=== PATIENT | male | born 1980 | race Hispanic/Latino ===

== ENCOUNTER 2019-07-28 21:50 | Inpatient (IN) | payer SELFPAY ==
[2019-07-28 23:55] LABS: Alanine Aminotransferase 17 units/L (7-56); Albumin 4.4 g/dL (3.9-5); BUN/Creatinine Ratio 6; Blood Urea Nitrogen 6 mg/dL (9-20); Hemolysis Index 9
[2019-07-28 23:56] LABS: Bacteria,Urine 4+ /HPF (Negative); Bilirubin,Urine NEG (Negative); Blood,Urine NEG (Negative); Color,Urine Yellow (Yellow); Mucus,Urine 2+ /HPF; Protein,Urine <15 mg/dL mg/dL (Negative); Urobilinogen,Urine < 2.0 mg/dL (<2.0)
[2019-07-29] LABS: Hematocrit 39.8 % (35.5-45.6); Hemoglobin 13.9 gm/dl (11.8-15.2); Mean Corpuscular HGB Conc 35 % (32-34); Mean Corpuscular Volume 90 fl (84-94); Platelet Count 239 K/mm3 (140-440); Red Blood Count 4.43 M/mm3 (3.65-5.03); Red Cell Distribution Width 14.4 % (13.2-15.2)
[2019-07-29] MEDS ORDERED: SODIUM CHLORIDE 0.9% 1000 ML IV SOLN IV ONE (00:10)
--- NOTE | 2019-07-29 01:17 | XRay Report ---
CHEST 1 VIEW INDICATION / CLINICAL INFORMATION: cough. COMPARISON: None available. FINDINGS: SUPPORT DEVICES: None. HEART / MEDIASTINUM: No significant abnormality. LUNGS / PLEURA: No significant pulmonary or pleural abnormality. No pneumothorax. ADDITIONAL FINDINGS: No significant additional findings. IMPRESSION: 1. No acute findings. Signer Name: Alexus Holden MD Signed: 07/29/2019 1:12 AM Workstation Name: [id number]
[2019-07-29] MEDS ORDERED: VANCOMYCIN 1000 MG INJ IV ONE (01:47)
[2019-07-29] MEDS ORDERED: VANCOMYCIN 2,000 MG in SODIUM CHLORIDE 0.9% 500 ML 500 ML IV ONE (02:30)
--- NOTE | 2019-07-29 02:35 | Emergency Department Report ---
ED General Adult HPI - General Chief complaint: Abdominal Pain Stated complaint: SHAKING, JOINT PAIN, NAUSEA Time Seen by Provider: 07/29/19 00:07 Source: patient Mode of arrival: Ambulatory Limitations: No Limitations - History of Present Illness Initial comments: Mr. Anderson is a 38-year-old white male with a history of bilat cellulitis lower extremity with MRSA. States frequent admissions annually for same 1 month ago at [facility] [facility] this year already. Patient presents tonight for fevers chills malaise. Denies new open wounds not currently taking any medications , denies new fall injury or trauma. States she just does not feel well has been noted low-grade fever so he knows his legs are infected. Patient does not currently have a PCP. Patient is ambulatory to ED on his own power he is alert oriented x3 in no acute distress at this time. He describes describes leg aching as 3/10 tolerable with moderate swelling and erythema. Symptoms are relieved by nothing. Symptoms are exacerbated by prolonged walking standing and stair climbing. Patient denies calf pain or pain with dorsiflexion bilateral. Onset/Timin -: year(s) Location: lower extremity Radiation: non-radiation Severity scale (0 -10): 2 Quality: burning Consistency: intermittent Worsens with: none Associated Symptoms: fever/chills, malaise, nausea/vomiting Treatments Prior to Arrival: none - Related Data Allergies Allergy/AdvReac Type Severity Reaction Status Date / Time No Known Allergies Allergy Unverified 07/28/19 22:42 ED Review of Systems ROS: Stated complaint: SHAKING, JOINT PAIN, NAUSEA Other details as noted in HPI Constitutional: denies: chills, fever Eyes: denies: eye pain, eye discharge, vision change ENT: denies: ear pain, throat pain Respiratory: cough. denies: orthopnea, shortness of breath, wheezing Cardiovascular: denies: chest pain, palpitations Endocrine: no symptoms reported Gastrointestinal: melena. denies: abdominal pain, nausea, vomiting, diarrhea, constipation, hematemesis, hematochezia Genitourinary: denies: urgency, dysuria Musculoskeletal: back pain, arthralgia. denies: joint swelling Skin: denies: rash, lesions, change in hair/nails Neurological: denies: headache, weakness, paresthesias, vertigo Psychiatric: denies: anxiety, depression Hematological/Lymphatic: denies: easy bleeding, easy bruising ED Past Medical Hx - Past Medical History Previous Medical History?: Yes Additional medical history: MRSA in his legs - Surgical History Past Surgical History?: No - Social History Smoking Status: Never Smoker ED Physical Exam - General Limitations: No Limitations General appearance: alert, in no apparent distress - Head Head exam: Present: atraumatic, normocephalic - Eye Eye exam: Present: normal appearance, PERRL, EOMI, conjunctival injection Pupils: Present: normal accommodation - ENT ENT exam: Present: normal exam, TM's normal bilaterally - Neck Neck exam: Present: normal inspection, meningismus, full ROM, lymphadenopathy. Absent: tenderness, thyromegaly - Respiratory Respiratory exam: Present: normal lung sounds bilaterally, wheezes, rhonchi. Absent: respiratory distress, chest wall tenderness - Cardiovascular Cardiovascular Exam: Present: regular rate, normal rhythm. Absent: systolic murmur, diastolic murmur, rubs, gallop - GI/Abdominal GI/Abdominal exam: Present: soft, normal bowel sounds. Absent: distended, tenderness, guarding, rebound, rigid - Rectal Rectal exam: Present: deferred - Extremities Exam Extremities exam: Present: full ROM, tenderness, normal capillary refill, other (bilat le erythema and swelling, distal pulses intact ). Absent: calf tenderness - Back Exam Back exam: Present: normal inspection, full ROM. Absent: tenderness, CVA t enderness (R), CVA tenderness (L), muscle spasm - Neurological Exam Neurological exam: Present: alert, oriented X3, CN II-XII intact, normal gait, motor sensory deficit, reflexes normal - Psychiatric Psychiatric exam: Present: normal affect, normal mood - Skin Skin exam: Present: warm, dry, intact, normal color. Absent: rash ED Course Vital Signs 07/28/19 07/29/19 07/29/19 22:43 00:46 00:52 Temperature 100.0 F H Pulse Rate 104 H 94 H Respiratory 18 24 Rate Blood Pressure 168/90 Blood Pressure 129/74 [Right] O2 Sat by Pulse 99 100 98 Oximetry 07/29/19 07/29/19 01:00 01:30 Temperature Pulse Rate 92 H 95 H Respiratory 17 18 Rate Blood Pressure 129/70 133/69 Blood Pressure [Right] O2 Sat by Pulse 98 100 Oximetry ED Medical Decision Making - Lab Data Result diagrams: 07/28/19 23:25 07/28/19 23:25 Labs 07/28/19 07/28/19 07/28/19 23:25 23:25 23:25 WBC 28.5 H RBC 4.43 Hgb 13.9 Hct 39.8 MCV 90 MCH 31 MCHC 35 H RDW 14.4 Plt Count 239 Sodium 140 Potassium 3.9 Chloride 102.3 Carbon Dioxide 28 Anion Gap 14 BUN 6 L Creatinine 1.0 Estimated GFR > 60 BUN/Creatinine Ratio 6 Glucose 89 Calcium 9.0 Total Bilirubin 0.80 AST 18 ALT 17 Alkaline Phosphatase 70 Total Protein 7.0 Albumin 4.4 Albumin/Globulin Ratio 1.7 Lipase 20 Urine Color Urine Turbidity Urine pH Ur Specific [place] Urine Protein Urine Glucose (UA) Urine Ketones Urine Blood Urine Nitrite Urine Bilirubin Urine Urobilinogen Ur Leukocyte Esterase Urine WBC (Auto) Urine RBC (Auto) U Epithel Cells (Auto) Urine Bacteria (Auto) Urine Mucus 07/28/19 Unknown WBC RBC Hgb Hct MCV MCH MCHC RDW Plt Count Sodium Potassium Chloride Carbon Dioxide Anion Gap BUN Creatinine Estimated GFR BUN/Creatinine Ratio Glucose Calcium Total Bilirubin AST ALT Alkaline Phosphatase Total Protein Albumin Albumin/Globulin Ratio Lipase Urine Color Yellow Urine Turbidity Clear Urine pH 7.0 Ur Specific [place] 1.008 Urine Protein <15 mg/dl Urine Glucose (UA) Neg Urine Ketones Neg Urine Blood Neg Urine Nitrite Neg Urine Bilirubin Neg Urine Urobilinogen < 2.0 Ur Leukocyte Esterase Neg Urine WBC (Auto) 2.0 Urine RBC (Auto) 2.0 U Epithel Cells (Auto) 1.0 Urine Bacteria (Auto) 4+ Urine Mucus 2+ - Radiology Data Radiology results: report reviewed, image reviewed Findings Reporting MD: Alexus Holden Dictation Time: July 29, 2019 00:12 Hand Rounder: Not available [employer] Studies Director Date: CHEST 1 VIEW INDICATION / CLINICAL INFORMATION: cough. COMPARISON: None available. FINDINGS: SUPPORT DEVICES: None. HEART / MEDIASTINUM: No significant abnormality. LUNGS / PLEURA: No significant pulmonary or pleural abnormality. No pneumothorax. ADDITIONAL FINDINGS: No significant additional findings. IMPRESSION: 1. No acute findings. Signer Name: Alexus Holden MD Signed: 07/29/2019 12:12 AM Workstation Name: [id number] - Medical Decision Making Chest x-ray normal no infiltrate no opacities. labs noted above for wbc: 28.5, lactic acid: 2.4, ua: normal, this bilat le cellullitis, there is no open wound at presents, there is moderate erythema and cellultitis , no calf tenderness, no sob, no cp, no n/v , fever improved, hr improves with ivfs., consulted ed attending recommendation admit to hospitalist fay ko le cellulitis. 0320: Consulted hospitalist, recommedation admit for cellulitis, patient care handoff to same at this time. discussed tx plan with patient, patient verbalizes agreement and understanding of same. Critical care attestation.: If time is entered above; I have spent that time in minutes in the direct care of this critically ill patient, excluding procedure time. ED Disposition Clinical Impression: Bilateral cellulitis of lower leg Disposition: OP ADMIT IP TO THIS HOSP Is pt being admited?: Yes Does the pt Need Aspirin: No Condition: Stable Instructions: Cellulitis (ED) Time of Disposition: 03:26
[2019-07-29] MEDS ORDERED: SODIUM CHLORIDE 0.9% 1000 ML 1,000 ML ONE (02:54)
[2019-07-29 03:08] LABS: Band Neutrophils # (Manual) 1.7 K/mm3; Eosinophils % (Manual) 0 % (0.0-4.3); Total Cells Counted 100
[2019-07-29 03:09] LABS: Burr Cells Rare; Platelet Estimate Consistent w Auto
--- NOTE | 2019-07-29 04:17 | History and Physical Report ---
History of Present Illness History of present illness: 38-year-old man, obese, history of MRSA, comes emergency room complaining of his right leg. Patient stated he was in the hospital [place] time for cellulitis of his leg, he was treated with antibiotic which she cannot recall, his legs improved. 2 days ago started having redness in the right leg than left and pain and states that he feels like his cellulitis is coming back. He denies cough, diarrhea, sick contacts. He was given IV vancomycin, he will be admitted to the hospital for further care of cellulitis Review Of Systems: Constitutional: no weight loss, fever, chills Ears, eyes, nose, mouth and throat: no nasal congestion, no nasal discharge, no sinus pressure, blurry vision, diplopia Neck: No neck pain or rigidity. Cardiovascular: No palpitations, chest pain Respiratory: No shortness of breath, cough Gastrointestinal: No hematochezia Genitourinary : no dysuria, frequency Musculoskeletal: no muscle ache , joint pain Integumentary: no rash, no pruritis Neurological: no parathesias, focal weakness Endocrine: no cold or heat intolerance, no polyuria or polydipsia Hematologic/Lymphatic: no easy bruising, no easy bleeding, no gland swelling Allergic/Immunologic: no urticaria, no angioedema. PAST MEDICAL HISTORY: MRSA PAST SURGICAL HISTORY: None SOCIAL HISTORY: Denies alcohol, tobacco, drugs FAMILY HISTORY: Hypertension Medications and Allergies Allergies Allergy/AdvReac Type Severity Reaction Status Date / Time No Known Allergies Allergy Unverified 07/28/19 22:42 Active Meds: Active Medications Vancomycin HCl 2,000 mg/ (Sodium Chloride) 540 mls @ 250 mls/hr IV ONCE ONE Stop: 07/29/19 04:39 Last Admin: 07/29/19 03:21 Dose: 250 mls/hr Documented by: Exam - Physical Exam Narrative exam: Gen. appearance: Patient lying in bed, no apparent distress HEENT: Normocephalic, atraumatic, pupils equally round and reactive to light, extraocular movement intact, and no sclericterus,. No JVD or thyromegaly or nodule,neck supple, no carotid bruit ,mucous membranes moist, no exudate or erythema Heart: S1, S2, regular rate and rhythm Lungs: Crackles bilaterally, breathing comfortable Abdomen: Positive bowel sounds, nontender, nondistended, no organomegaly Extremity: Right leg with mild erythema, no edema, cyanosis, clubbing Skin: No rash, nodules, warm, dry Neuro: Cranial nerves II to XII intact, speech is fluent, moves extremities, sensory intact - Constitutional Vitals: Temp Pulse Resp BP Pulse Ox 100.0 F H 94 H 28 H 134/64 100 07/28/19 22:43 07/29/19 04:00 07/29/19 04:00 07/29/19 04:00 07/29/19 04:00 Results - Labs CBC & Chem 7: 07/28/19 23:25 07/28/19 23:25 Labs: Abnormal lab results 07/28/19 07/28/19 07/29/19 Range/Units 23:25 23:25 01:46 WBC 28.5 H (4.5-11.0) K/mm3 MCHC 35 H (32-34) % Seg Neuts % (Manual) 84.0 H (40.0-70.0) % Lymphocytes % (Manual) 3.0 L (13.4-35.0) % Seg Neutrophils # Man 23.9 H (1.8-7.7) K/mm3 Lymphocytes # (Manual) 0.9 L (1.2-5.4) K/mm3 Monocytes # (Manual) 1.7 H (0.0-0.8) K/mm3 Basophils # (Manual) 0.3 H (0.0-0.1) K/mm3 BUN 6 L (9-20) mg/dL Lactic Acid 2.40 H* (0.7-2.0) mmol/L - Imaging and Cardiology Chest x-ray: report reviewed Assessment and Plan Assessment Cellulitis of the leg Start vancomycin, IV fluid Consult infectious disease Leukocytosis out of proportion to the degree of cellulitis Start Percocet, contact precautions DVT prophylaxis
[2019-07-29] MEDS ORDERED: ONDANSETRON 4 MG/2 ML INJ IV PRN (05:52)
[2019-07-29] MEDS ORDERED: ACETAMINOPHEN 325 MG TAB PO PRN (05:52)
[2019-07-29] MEDS: SODIUM CHLORIDE 0.45% 1000 ML 1,000 ML IV SCH ×2 (08:09→22:02)
[2019-07-29] MEDS: ENOXAPARIN 40 MG/0.4 ML INJ SUB-Q SCH (14:25)
[2019-07-29] MEDS: VANCOMYCIN 2,000 MG in SODIUM CHLORIDE 0.9% 500 ML 500 ML IV SCH ×2 (14:25→21:52)
[2019-07-29] MEDS ORDERED: VANCOMYCIN/NS 1 GM/250 ML 1 GM/250 ML BAG IV SCH (14:30)
--- NOTE | 2019-07-29 14:47 | Consultation ---
History of Present Illness - Reason for Consult Consult date: 07/29/19 Cellulitis Requesting physician: LESLIE GUTIERREZ - History of Present Illness The patient is a 38-year-old male with obesity, history of MRSA and group A streptococcus bacteremia in March 2019 treated with 4 weeks of IV daptomycin that ended on 04/08/2019 at [facility] was admitted yesterday with complaints of pain and swelling of his right leg. He denies any obvious trauma. Denies any other symptoms. Noted to have right lower extremity swelling, leukocytosis. Infectious diseases was consulted for additional evaluation. Patient denies any smoking, alcohol or recreational drug use, also denies any IV drug use. Review of Systems: General: Low-grade fever HEENT: no new visual disturbance Respiratory: No cough, sputum, hemoptysis or shortness of breath Cardiovascular: No chest pain, syncope Gastrointestinal: No nausea, vomiting or diarrhea Genitourinary: No dysuria or hematuria Musculoskeletal: No new or worsening neck pain or back pain Neurologic: No headaches, seizures Hematologic: No easy bruising or bleeding Endocrine: No night sweats or acute weight loss Skin: negative for rash, jaundice Psychiatric: No suicidal or homicidal ideation Medications and Allergies Allergies Allergy/AdvReac Type Severity Reaction Status Date / Time No Known Allergies Allergy Unverified 07/28/19 22:42 Active Meds: Active Medications Acetaminophen (Tylenol) 650 mg PO Q4H PRN PRN Reason: Pain MILD(1-3)/Fever >100.5/MARTINEZ Enoxaparin Sodium (Enoxaparin) 40 mg SUB-Q QAM [facility] Last Admin: 07/29/19 14:25 Dose: 40 mg Documented by: Sodium Chloride (Nacl 0.45% 1000 Ml) 1,000 mls @ 75 mls/hr IV DIRECT [facility] Last Admin: 07/29/19 08:09 Dose: 75 mls/hr Documented by: Vancomycin HCl 2,000 mg/ (Sodium Chloride) 540 mls @ 250 mls/hr IV Q8H [facility] Last Admin: 07/29/19 14:25 Dose: 250 mls/hr Documented by: Ondansetron HCl (Zofran) 4 mg IV Q8H PRN PRN Reason: Nausea And Vomiting Oxycodone/Acetaminophen (Percocet 5/325) 1 tab PO Q6H PRN PRN Reason: Pain, Moderate (4-6) Sodium Chloride (Sodium Chloride Flush Syringe 10 Ml) 10 ml IV BID [facility] Last Admin: 07/29/19 14:25 Dose: 10 ml Documented by: Sodium Chloride (Sodium Chloride Flush Syringe 10 Ml) 10 ml IV PRN PRN PRN Reason: LINE FLUSH Physical Examination - Physical Exam Narrative exam: Physical Exam: Constitutional: Alert, cooperative. No acute distress Head, Ears, Nose: Normocephalic, atraumatic. External ears, nose normal Eyes: Conjunctivae/corneas clear. No icterus. No ptosis. Neck: Supple, no meningeal signs Cardiovascular: S1, S2 normal. Respiratory: Good air entry, clear to auscultation bilaterally GI: Soft, non-tender; bowel sounds normal. No peritoneal signs Musculoskeletal: Right lower extremity swelling, redness and tenderness. No open area or purulence or wound Skin: No rash or abscess Hem/Lymphatic: No palpable cervical or supraclavicular nodes. No lymphangitis Psych: Mood ok. Affect normal Neurological: Awake, alert, oriented. No gross abnormality - Constitutional Vitals: Vital Signs Temp Pulse Resp BP Pulse Ox 99.7 F H 89 22 124/70 95 07/29/19 14:20 07/29/19 14:20 07/29/19 14:20 07/29/19 14:20 07/29/19 14:20 Temperature -Last 24 Hours Temperature 99.7 F Temperature 100.3 F Temperature 100.0 F Results - Labs CBC & Chem 7: 07/28/19 23:25 07/28/19 23:25 Labs: Abnormal lab results 07/28/19 07/28/19 07/29/19 Range/Units 23:25 23:25 01:46 WBC 28.5 H (4.5-11.0) K/mm3 MCHC 35 H (32-34) % Seg Neuts % (Manual) 84.0 H (40.0-70.0) % Lymphocytes % (Manual) 3.0 L (13.4-35.0) % Seg Neutrophils # Man 23.9 H (1.8-7.7) K/mm3 Lymphocytes # (Manual) 0.9 L (1.2-5.4) K/mm3 Monocytes # (Manual) 1.7 H (0.0-0.8) K/mm3 Basophils # (Manual) 0.3 H (0.0-0.1) K/mm3 BUN 6 L (9-20) mg/dL Lactic Acid 2.40 H* (0.7-2.0) mmol/L - Imaging and Cardiology Chest x-ray: report reviewed, image reviewed (no pneumonia) Assessment and Plan Cultures: 07/29/2019 blood culture: In progress A/P: 38-year-old male with obesity, history of MRSA and group A streptococcus bacteremia in March 2019 treated with 4 weeks of IV daptomycin that ended on 04/08/2019 at [facility]: #Sepsis, right lower extremity cellulitis #Obesity #History of MRSA and group A streptococcus bacteremia in March 2019 treated with 4 weeks of IV daptomycin that ended on 04/08/2019 at [facility]. Treated by Heidi MUKHERJEE. Recs: Continue IV vancomycin, target trough between 10 to 20 mcg/mL IV clindamycin added for synergy Limb elevation Rule out DVT, ultrasound ordered Estela Rutherford MD, FACP [facility] C: [phone] O: [phone] F: [phone]
--- NOTE | 2019-07-29 15:21 | Progress Note ---
Assessment and Plan Assessment and plan: Patient is a 38 yo man with a history of bilateral leg cellulitis with MRSA who presents with bilateral leg pains. Sepsis right leg cellulitis: treat with IV Vancomycin with close monitoring Obesity, bmi 48.2: behavioral school counselors on weight reduction History of MRSA and group A streptococcus bacteremia in March 2019 treated with 4 weeks of IV daptomycin that ended on 04/08/2019 at [facility]. Treated by [place] ID: contact isolation History Interval history: Patient was seen and examined. Follow-up on current diagnosis RLE cellulitis. Overnight uneventful as no events directly reported to me. Patient denies any chest pain, shortness breath, nausea/vomiting or severe headaches. Imaging, nursing note, chart, labs and old chart reviewed. Discussed with patient. Hospitalist Physical - Physical exam Narrative exam: Gen: WDWN, NAD, Awake, Alert, Orientated HEENT: NCAT, EOMI, PERRL, OP Clear Neck: supple, no adenopathy, no thyromegaly, no JVD CVS/Heart: RRR, normal S1S2, pulses present bilaterally Chest/Lungs: CTA B, Symmetrical chest expansion, good air entry bilaterally GI/Abdomen: soft, NTND, good bowel sounds, no guarding or rebound /Bladder: no suprapubic tenderness, no CVA or paraspinal tenderness Extermity/Skin: bilateral lower leg with venous stasis changes, with right lower leg circumferential redness from ankle to mid calf with erythema, tenderness MSK: FROM x 4 Neuro: CN 2-12 grossly intact, no new focal deficits Psych: calm - Constitutional Vitals: Temp Pulse Resp BP Pulse Ox 99.7 F H 89 22 124/70 95 07/29/19 14:20 07/29/19 14:20 07/29/19 14:20 07/29/19 14:20 07/29/19 14:20 Results - Labs CBC & Chem 7: 07/28/19 23:25 07/28/19 23:25 Labs: Laboratory Last Values WBC 28.5 K/mm3 (4.5-11.0) H 07/28/19 23:25 RBC 4.43 M/mm3 (3.65-5.03) 07/28/19 23:25 Hgb 13.9 gm/dl (11.8-15.2) 07/28/19 23:25 Hct 39.8 % (35.5-45.6) 07/28/19 23:25 MCV 90 fl (84-94) 07/28/19 23:25 MCH 31 pg (28-32) 07/28/19 23:25 MCHC 35 % (32-34) H 07/28/19 23:25 RDW 14.4 % (13.2-15.2) 07/28/19 23:25 Plt Count 239 K/mm3 (140-440) 07/28/19 23:25 Add Manual Diff Complete 07/28/19 23:25 Total Counted 100 07/28/19 23:25 Seg Neuts % (Manual) 84.0 % (40.0-70.0) H 07/28/19 23:25 Band Neutrophils % 6.0 % 07/28/19 23:25 Lymphocytes % (Manual) 3.0 % (13.4-35.0) L 07/28/19 23:25 Reactive Lymphs % (Man) 0 % 07/28/19 23:25 Monocytes % (Manual) 6.0 % (0.0-7.3) 07/28/19 23:25 Eosinophils % (Manual) 0 % (0.0-4.3) 07/28/19 23:25 Basophils % (Manual) 1.0 % (0.0-1.8) 07/28/19 23:25 Metamyelocytes % 0 % 07/28/19 23:25 Myelocytes % 0 % 07/28/19 23:25 Promyelocytes % 0 % 07/28/19 23:25 Blast Cells % 0 % 07/28/19 23:25 Nucleated RBC % Not Reportable 07/28/19 23:25 Seg Neutrophils # Man 23.9 K/mm3 (1.8-7.7) H 07/28/19 23:25 Band Neutrophils # 1.7 K/mm3 07/28/19 23:25 Lymphocytes # (Manual) 0.9 K/mm3 (1.2-5.4) L 07/28/19 23:25 Abs React Lymphs (Man) 0.0 K/mm3 07/28/19 23:25 Monocytes # (Manual) 1.7 K/mm3 (0.0-0.8) H 07/28/19 23:25 Eosinophils # (Manual) 0.0 K/mm3 (0.0-0.4) 07/28/19 23:25 Basophils # (Manual) 0.3 K/mm3 (0.0-0.1) H 07/28/19 23:25 Metamyelocytes # 0.0 K/mm3 07/28/19 23:25 Myelocytes # 0.0 K/mm3 07/28/19 23:25 Promyelocytes # 0.0 K/mm3 07/28/19 23:25 Blast Cells # 0.0 K/mm3 07/28/19 23:25 WBC Morphology Not Reportable 07/28/19 23:25 Hypersegmented Neuts Not Reportable 07/28/19 23:25 Hyposegmented Neuts Not Reportable 07/28/19 23:25 Hypogranular Neuts Not Reportable 07/28/19 23:25 Smudge Cells Not Reportable 07/28/19 23:25 Toxic Granulation Not Reportable 07/28/19 23:25 Toxic Vacuolation Not Reportable 07/28/19 23:25 Dohle Bodies Not Reportable 07/28/19 23:25 Pelger-Huet Anomaly Not Reportable 07/28/19 23:25 Marjan Rods Not Reportable 07/28/19 23:25 Platelet Estimate Consistent w auto 07/28/19 23:25 Clumped Platelets Not Reportable 07/28/19 23:25 Plt Clumps, EDTA Not Reportable 07/28/19 23:25 Large Platelets Not Reportable 07/28/19 23:25 Giant Platelets Not Reportable 07/28/19 23:25 Platelet Satelliting Not Reportable 07/28/19 23:25 Plt Morphology Comment Not Reportable 07/28/19 23:25 RBC Morphology Not Reportable 07/28/19 23:25 Dimorphic RBCs Not Reportable 07/28/19 23:25 Polychromasia Not Reportable 07/28/19 23:25 Hypochromasia Not Reportable 07/28/19 23:25 Poikilocytosis Not Reportable 07/28/19 23:25 Anisocytosis Not Reportable 07/28/19 23:25 Microcytosis Not Reportable 07/28/19 23:25 Macrocytosis Not Reportable 07/28/19 23:25 Spherocytes Not Reportable 07/28/19 23:25 Pappenheimer Bodies Not Reportable 07/28/19 23:25 Sickle Cells Not Reportable 07/28/19 23:25 Target Cells Not Reportable 07/28/19 23:25 Tear Drop Cells Not Reportable 07/28/19 23:25 Ovalocytes Not Reportable 07/28/19 23:25 Helmet Cells Not Reportable 07/28/19 23:25 [place] Bodies Not Reportable 07/28/19 23:25 [place] Rings Not Reportable 07/28/19 23:25 Li Cells Rare 07/28/19 23:25 Bite Cells Not Reportable 07/28/19 23:25 Crenated Cell Not Reportable 07/28/19 23:25 Elliptocytes Rare 07/28/19 23:25 Acanthocytes (Spur) Not Reportable 07/28/19 23:25 Rouleaux Not Reportable 07/28/19 23:25 Hemoglobin C Crystals Not Reportable 07/28/19 23:25 Schistocytes Not Reportable 07/28/19 23:25 Malaria parasites Not Reportable 07/28/19 23:25 Vince Bodies Not Reportable 07/28/19 23:25 Hem Pathologist Commnt No 07/28/19 23:25 Sodium 140 mmol/L (137-145) 07/28/19 23:25 Potassium 3.9 mmol/L (3.6-5.0) 07/28/19 23:25 Chloride 102.3 mmol/L (98-107) 07/28/19 23:25 Carbon Dioxide 28 mmol/L (22-30) 07/28/19 23:25 Anion Gap 14 mmol/L 07/28/19 23:25 BUN 6 mg/dL (9-20) L 07/28/19 23:25 Creatinine 1.0 mg/dL (0.8-1.5) 07/28/19 23:25 Estimated GFR > 60 ml/min 07/28/19 23:25 BUN/Creatinine Ratio 6 % 07/28/19 23:25 Glucose 89 mg/dL (75-100) 07/28/19 23:25 Lactic Acid 1.90 mmol/L (0.7-2.0) 07/29/19 05:51 Calcium 9.0 mg/dL (8.4-10.2) 07/28/19 23:25 Total Bilirubin 0.80 mg/dL (0.1-1.2) 07/28/19 23:25 AST 18 units/L (5-40) 07/28/19 23:25 ALT 17 units/L (7-56) 07/28/19 23:25 Alkaline Phosphatase 70 units/L (35-129) 07/28/19 23:25 Total Protein 7.0 g/dL (6.3-8.2) 07/28/19 23:25 Albumin 4.4 g/dL (3.9-5) 07/28/19 23:25 Albumin/Globulin Ratio 1.7 % 07/28/19 23:25 Lipase 20 units/L (13-60) 07/28/19 23:25 Urine Color Yellow (Yellow) 07/28/19 Unknown Urine Turbidity Clear (Clear) 07/28/19 Unknown Urine pH 7.0 (5.0-7.0) 07/28/19 Unknown Ur Specific [place] 1.008 (1.003-1.030) 07/28/19 Unknown Urine Protein <15 mg/dl mg/dL (Negative) 07/28/19 Unknown Urine Glucose (UA) Neg mg/dL (Negative) 07/28/19 Unknown Urine Ketones Neg mg/dL (Negative) 07/28/19 Unknown Urine Blood Neg (Negative) 07/28/19 Unknown Urine Nitrite Neg (Negative) 07/28/19 Unknown Urine Bilirubin Neg (Negative) 07/28/19 Unknown Urine Urobilinogen < 2.0 mg/dL (<2.0) 07/28/19 Unknown Ur Leukocyte Esterase Neg (Negative) 07/28/19 Unknown Urine WBC (Auto) 2.0 /HPF (0.0-6.0) 07/28/19 Unknown Urine RBC (Auto) 2.0 /HPF (0.0-6.0) 07/28/19 Unknown U Epithel Cells (Auto) 1.0 /HPF (0-13.0) 07/28/19 Unknown Urine Bacteria (Auto) 4+ /HPF (Negative) 07/28/19 Unknown Urine Mucus 2+ /HPF 07/28/19 Unknown Microbiology: Microbiology 07/29/19 01:46 Peripheral/Venous Blood Culture - Preliminary Culture in Progress 07/29/19 01:46 Peripheral/Venous Blood Culture - Preliminary Culture in Progress Panda/IV: IV Catheter Type [Right Peripheral IV Antecubital] IV Catheter Type [Left INT / Saline Lock Antecubital] Active Medications - Current Medications Current Medications: Generic Name Dose Route Start Last Admin Trade Name Freq PRN Reason Stop Dose Admin Acetaminophen 650 mg 07/29/19 05:52 Tylenol PO Q4H PRN Pain MILD(1-3)/Fever >100.5/MARTINEZ Enoxaparin Sodium 40 mg 07/29/19 10:00 07/29/19 14:25 Enoxaparin SUB-Q 40 mg QAM ZAK Administration Sodium Chloride 1,000 mls @ 75 mls/hr 07/29/19 06:00 07/29/19 08:09 Nacl 0.45% 1000 Ml IV 75 mls/hr DIRECT ZAK Administration Vancomycin HCl 2,000 mg/ 540 mls @ 250 mls/hr 07/29/19 12:00 07/29/19 14:25 Sodium Chloride IV 250 mls/hr Q8H ZAK Administration Clindamycin HCl 900 mg in 50 mls @ 100 mls/hr 07/29/19 15:00 Cleocin 900 Mg/50 Ml IV Q8HR ZAK Protocol Ondansetron HCl 4 mg 07/29/19 05:52 Zofran IV Q8H PRN Nausea And Vomiting Oxycodone/Acetaminophen 1 tab 07/29/19 05:52 Percocet 5/325 PO Q6H PRN Pain, Moderate (4-6) Sodium Chloride 10 ml 07/29/19 10:00 07/29/19 14:25 Sodium Chloride Flush Syringe 10 Ml IV 10 ml BID ZAK Administration Sodium Chloride 10 ml 07/29/19 05:52 Sodium Chloride Flush Syringe 10 Ml IV PRN PRN LINE FLUSH
[2019-07-29] MEDS: oxyCODONE /ACETAMINOPHEN 5-325MG TAB PO PRN (21:53)
[2019-07-30] MEDS: VANCOMYCIN 2,000 MG in SODIUM CHLORIDE 0.9% 500 ML 500 ML IV SCH ×3 (04:38→19:57)
[2019-07-30 04:42] LABS: Basophils # (Auto) 0.1 K/mm3 (0.0-0.1); Basophils % (Auto) 0.8 % (0.0-1.8); Eosinophils # (Auto) 0.1 K/mm3 (0.0-0.4); Eosinophils % (Auto) 1.7 % (0.0-4.3); Hematocrit 37.9 % (35.5-45.6); Hemoglobin 12.8 gm/dl (11.8-15.2); Lymphocytes # (Auto) 1.8 K/mm3 (1.2-5.4); Lymphocytes % (Auto) 22.1 % (13.4-35.0); Mean Corpuscular HGB Conc 34 % (32-34); Mean Corpuscular Volume 89 fl (84-94); Monocytes % (Auto) 12.5 % (0.0-7.3); Platelet Count 206 K/mm3 (140-440); Red Blood Count 4.23 M/mm3 (3.65-5.03); Red Cell Distribution Width 14.7 % (13.2-15.2)
[2019-07-30 04:59] LABS: BUN/Creatinine Ratio 13; Blood Urea Nitrogen 10 mg/dL (9-20); Calcium 8.1 mg/dL (8.4-10.2); Hemolysis Index 6
[2019-07-30] MEDS ORDERED: POTASSIUM CHLORIDE ER 20 MEQ TAB PO ONE (09:00)
[2019-07-30] MEDS: ENOXAPARIN 40 MG/0.4 ML INJ SUB-Q SCH (09:45)
--- NOTE | 2019-07-30 10:46 | Vascular Lab Report ---
DUPLEX DOPPLER LOWER EXTREMITY VEINS, BILATERAL INDICATION / CLINICAL INFORMATION: b/l lower extremity swelling, pain. TECHNIQUE: Duplex doppler imaging was performed through the veins of both lower extremities using venous berlin reggie and other maneuvers. COMPARISON: None available. FINDINGS: Right Common Femoral vein: Negative. Right Femoral vein: Negative. Right Popliteal vein: Negative. Right Calf veins: Negative. Left Common Femoral vein: Negative. Left Femoral vein: Negative. Left Popliteal vein: Negative. Left Calf veins: Negative. Additional findings: None. IMPRESSION: 1. No sonographic evidence for DVT in either lower extremity. Signer Name: Tonio Junior MD Signed: 07/29/2019 7:07 PM Workstation Name: [id number]
--- NOTE | 2019-07-30 11:49 | Progress Note ---
Assessment and Plan Assessment and plan: Patient is a 38 yo man with a history of bilateral leg cellulitis with MRSA who presents with bilateral leg pains. Sepsis right leg cellulitis: treat with IV Vancomycin with close monitoring Obesity, bmi 48.2: insurance counselor on weight reduction History of MRSA and group A streptococcus bacteremia in March 2019 treated with 4 weeks of IV daptomycin that ended on 04/08/2019 at [facility]. Treated by [place] ID: contact isolation 07/30/19: on IV vancomycin, WBC improved from 28.5 to 7.9, continue to follow cultures. History Interval history: Patient was seen and examined. Follow-up on current diagnosis RLE cellulitis. Overnight uneventful as no events directly reported to me. Patient denies any chest pain, shortness breath, nausea/vomiting or severe headaches. Imaging, nursing note, chart, labs and old chart reviewed. Discussed with patient. Hospitalist Physical - Physical exam Narrative exam: Gen: WDWN, NAD, Awake, Alert, Orientated HEENT: NCAT, EOMI, PERRL, OP Clear Neck: supple, no adenopathy, no thyromegaly, no JVD CVS/Heart: RRR, normal S1S2, pulses present bilaterally Chest/Lungs: CTA B, Symmetrical chest expansion, good air entry bilaterally GI/Abdomen: soft, NTND, good bowel sounds, no guarding or rebound /Bladder: no suprapubic tenderness, no CVA or paraspinal tenderness Extermity/Skin: bilateral lower leg with venous stasis changes, much better, right lower leg circumferential redness from ankle to mid calf with erythema, tenderness MSK: FROM x 4 Neuro: CN 2-12 grossly intact, no new focal deficits Psych: calm - Constitutional Vitals: Temp Pulse Resp BP Pulse Ox 97.5 F L 78 18 137/76 97 07/30/19 08:14 07/30/19 08:14 07/30/19 08:27 07/30/19 08:14 07/30/19 08:27 Results - Labs CBC & Chem 7: 07/30/19 03:42 07/30/19 03:42 Labs: Laboratory Last Values WBC 7.9 K/mm3 (4.5-11.0) 07/30/19 03:42 RBC 4.23 M/mm3 (3.65-5.03) 07/30/19 03:42 Hgb 12.8 gm/dl (11.8-15.2) 07/30/19 03:42 Hct 37.9 % (35.5-45.6) 07/30/19 03:42 MCV 89 fl (84-94) 07/30/19 03:42 MCH 30 pg (28-32) 07/30/19 03:42 MCHC 34 % (32-34) 07/30/19 03:42 RDW 14.7 % (13.2-15.2) 07/30/19 03:42 Plt Count 206 K/mm3 (140-440) 07/30/19 03:42 Lymph % (Auto) 22.1 % (13.4-35.0) 07/30/19 03:42 Saline % (Auto) 12.5 % (0.0-7.3) H 07/30/19 03:42 Eos % (Auto) 1.7 % (0.0-4.3) 07/30/19 03:42 Baso % (Auto) 0.8 % (0.0-1.8) 07/30/19 03:42 Lymph # 1.8 K/mm3 (1.2-5.4) 07/30/19 03:42 Saline # 1.0 K/mm3 (0.0-0.8) H 07/30/19 03:42 Eos # 0.1 K/mm3 (0.0-0.4) 07/30/19 03:42 Baso # 0.1 K/mm3 (0.0-0.1) 07/30/19 03:42 Add Manual Diff Complete 07/28/19 23:25 Total Counted 100 07/28/19 23:25 Seg Neutrophils % 62.9 % (40.0-70.0) 07/30/19 03:42 Seg Neuts % (Manual) 84.0 % (40.0-70.0) H 07/28/19 23:25 Band Neutrophils % 6.0 % 07/28/19 23:25 Lymphocytes % (Manual) 3.0 % (13.4-35.0) L 07/28/19 23:25 Reactive Lymphs % (Man) 0 % 07/28/19 23:25 Monocytes % (Manual) 6.0 % (0.0-7.3) 07/28/19 23:25 Eosinophils % (Manual) 0 % (0.0-4.3) 07/28/19 23:25 Basophils % (Manual) 1.0 % (0.0-1.8) 07/28/19 23:25 Metamyelocytes % 0 % 07/28/19 23:25 Myelocytes % 0 % 07/28/19 23:25 Promyelocytes % 0 % 07/28/19 23:25 Blast Cells % 0 % 07/28/19 23:25 Nucleated RBC % Not Reportable 07/28/19 23:25 Seg Neutrophils # 5.0 K/mm3 (1.8-7.7) 07/30/19 03:42 Seg Neutrophils # Man 23.9 K/mm3 (1.8-7.7) H 07/28/19 23:25 Band Neutrophils # 1.7 K/mm3 07/28/19 23:25 Lymphocytes # (Manual) 0.9 K/mm3 (1.2-5.4) L 07/28/19 23:25 Abs React Lymphs (Man) 0.0 K/mm3 07/28/19 23:25 Monocytes # (Manual) 1.7 K/mm3 (0.0-0.8) H 07/28/19 23:25 Eosinophils # (Manual) 0.0 K/mm3 (0.0-0.4) 07/28/19 23:25 Basophils # (Manual) 0.3 K/mm3 (0.0-0.1) H 07/28/19 23:25 Metamyelocytes # 0.0 K/mm3 07/28/19 23:25 Myelocytes # 0.0 K/mm3 07/28/19 23:25 Promyelocytes # 0.0 K/mm3 07/28/19 23:25 Blast Cells # 0.0 K/mm3 07/28/19 23:25 WBC Morphology Not Reportable 07/28/19 23:25 Hypersegmented Neuts Not Reportable 07/28/19 23:25 Hyposegmented Neuts Not Reportable 07/28/19 23:25 Hypogranular Neuts Not Reportable 07/28/19 23:25 Smudge Cells Not Reportable 07/28/19 23:25 Toxic Granulation Not Reportable 07/28/19 23:25 Toxic Vacuolation Not Reportable 07/28/19 23:25 Dohle Bodies Not Reportable 07/28/19 23:25 Pelger-Huet Anomaly Not Reportable 07/28/19 23:25 Marjan Rods Not Reportable 07/28/19 23:25 Platelet Estimate Consistent w auto 07/28/19 23:25 Clumped Platelets Not Reportable 07/28/19 23:25 Plt Clumps, EDTA Not Reportable 07/28/19 23:25 Large Platelets Not Reportable 07/28/19 23:25 Giant Platelets Not Reportable 07/28/19 23:25 Platelet Satelliting Not Reportable 07/28/19 23:25 Plt Morphology Comment Not Reportable 07/28/19 23:25 RBC Morphology Not Reportable 07/28/19 23:25 Dimorphic RBCs Not Reportable 07/28/19 23:25 Polychromasia Not Reportable 07/28/19 23:25 Hypochromasia Not Reportable 07/28/19 23:25 Poikilocytosis Not Reportable 07/28/19 23:25 Anisocytosis Not Reportable 07/28/19 23:25 Microcytosis Not Reportable 07/28/19 23:25 Macrocytosis Not Reportable 07/28/19 23:25 Spherocytes Not Reportable 07/28/19 23:25 Pappenheimer Bodies Not Reportable 07/28/19 23:25 Sickle Cells Not Reportable 07/28/19 23:25 Target Cells Not Reportable 07/28/19 23:25 Tear Drop Cells Not Reportable 07/28/19 23:25 Ovalocytes Not Reportable 07/28/19 23:25 Helmet Cells Not Reportable 07/28/19 23:25 [place] Bodies Not Reportable 07/28/19 23:25 [place] Rings Not Reportable 07/28/19 23:25 [place] Cells Rare 07/28/19 23:25 Bite Cells Not Reportable 07/28/19 23:25 Crenated Cell Not Reportable 07/28/19 23:25 Elliptocytes Rare 07/28/19 23:25 Acanthocytes (Spur) Not Reportable 07/28/19 23:25 Rouleaux Not Reportable 07/28/19 23:25 Hemoglobin C Crystals Not Reportable 07/28/19 23:25 Schistocytes Not Reportable 07/28/19 23:25 Malaria parasites Not Reportable 07/28/19 23:25 Vince Bodies Not Reportable 07/28/19 23:25 Hem Pathologist Commnt No 07/28/19 23:25 Sodium 142 mmol/L (137-145) 07/30/19 03:42 Potassium 3.3 mmol/L (3.6-5.0) L 07/30/19 03:42 Chloride 107.2 mmol/L (98-107) H 07/30/19 03:42 Carbon Dioxide 25 mmol/L (22-30) 07/30/19 03:42 Anion Gap 13 mmol/L 07/30/19 03:42 BUN 10 mg/dL (9-20) 07/30/19 03:42 Creatinine 0.8 mg/dL (0.8-1.5) 07/30/19 03:42 Estimated GFR > 60 ml/min 07/30/19 03:42 BUN/Creatinine Ratio 13 % 07/30/19 03:42 Glucose 97 mg/dL (75-100) 07/30/19 03:42 Lactic Acid 1.90 mmol/L (0.7-2.0) 07/29/19 05:51 Calcium 8.1 mg/dL (8.4-10.2) L 07/30/19 03:42 Total Bilirubin 0.80 mg/dL (0.1-1.2) 07/28/19 23:25 AST 18 units/L (5-40) 07/28/19 23:25 ALT 17 units/L (7-56) 07/28/19 23:25 Alkaline Phosphatase 70 units/L (35-129) 07/28/19 23:25 Total Protein 7.0 g/dL (6.3-8.2) 07/28/19 23:25 Albumin 4.4 g/dL (3.9-5) 07/28/19 23:25 Albumin/Globulin Ratio 1.7 % 07/28/19 23:25 Lipase 20 units/L (13-60) 07/28/19 23:25 Urine Color Yellow (Yellow) 07/28/19 Unknown Urine Turbidity Clear (Clear) 07/28/19 Unknown Urine pH 7.0 (5.0-7.0) 07/28/19 Unknown Ur Specific [place] 1.008 (1.003-1.030) 07/28/19 Unknown Urine Protein <15 mg/dl mg/dL (Negative) 07/28/19 Unknown Urine Glucose (UA) Neg mg/dL (Negative) 07/28/19 Unknown Urine Ketones Neg mg/dL (Negative) 07/28/19 Unknown Urine Blood Neg (Negative) 07/28/19 Unknown Urine Nitrite Neg (Negative) 07/28/19 Unknown Urine Bilirubin Neg (Negative) 07/28/19 Unknown Urine Urobilinogen < 2.0 mg/dL (<2.0) 07/28/19 Unknown Ur Leukocyte Esterase Neg (Negative) 07/28/19 Unknown Urine WBC (Auto) 2.0 /HPF (0.0-6.0) 07/28/19 Unknown Urine RBC (Auto) 2.0 /HPF (0.0-6.0) 07/28/19 Unknown U Epithel Cells (Auto) 1.0 /HPF (0-13.0) 07/28/19 Unknown Urine Bacteria (Auto) 4+ /HPF (Negative) 07/28/19 Unknown Urine Mucus 2+ /HPF 07/28/19 Unknown Microbiology: Microbiology 07/29/19 01:46 Peripheral/Venous Blood Culture - Preliminary NO GROWTH AFTER 24 HOURS 07/29/19 01:46 Peripheral/Venous Blood Culture - Preliminary NO GROWTH AFTER 24 HOURS Panda/IV: IV Catheter Type [Right Peripheral IV Antecubital] IV Catheter Type [Left INT / Saline Lock Antecubital] Active Medications - Current Medications Current Medications: Generic Name Dose Route Start Last Admin Trade Name Freq PRN Reason Stop Dose Admin Acetaminophen 650 mg 07/29/19 05:52 07/29/19 21:52 Tylenol PO 650 mg Q4H PRN Administration Pain MILD(1-3)/Fever >100.5/MARTINEZ Enoxaparin Sodium 40 mg 07/29/19 10:00 07/30/19 09:45 Enoxaparin SUB-Q 40 mg QAM ZAK Administration Sodium Chloride 1,000 mls @ 75 mls/hr 07/29/19 06:00 07/29/19 22:02 Nacl 0.45% 1000 Ml IV 75 mls/hr DIRECT ZAK Administration Vancomycin HCl 2,000 mg/ 540 mls @ 250 mls/hr 07/29/19 12:00 07/30/19 11:29 Sodium Chloride IV 250 mls/hr Q8H ZAK Administration Clindamycin HCl 900 mg in 50 mls @ 100 mls/hr 07/29/19 15:00 07/30/19 07:48 Cleocin 900 Mg/50 Ml IV Infused Q8HR ZAK Infusion Protocol Ondansetron HCl 4 mg 07/29/19 05:52 07/29/19 21:53 Zofran IV 4 mg Q8H PRN Administration Nausea And Vomiting Oxycodone/Acetaminophen 1 tab 07/29/19 05:52 07/29/19 21:53 Percocet 5/325 PO 1 tab Q6H PRN Administration Pain, Moderate (4-6) Sodium Chloride 10 ml 07/29/19 10:00 07/30/19 09:46 Sodium Chloride Flush Syringe 10 Ml IV 10 ml BID ZAK Administration Sodium Chloride 10 ml 07/29/19 05:52 Sodium Chloride Flush Syringe 10 Ml IV PRN PRN LINE FLUSH
--- NOTE | 2019-07-30 12:32 | Progress Note ---
Assessment and Plan Cultures: 07/29/2019 blood culture: no growth thus far A/P: 38-year-old male with obesity, history of MRSA and group A streptococcus bacteremia in March 2019 treated with 4 weeks of IV daptomycin that ended on 04/08/2019 at [facility]: #Sepsis, right lower extremity cellulitis: US negative for DVT. #Obesity #History of MRSA and group A streptococcus bacteremia in March 2019 treated with 4 weeks of IV daptomycin that ended on 04/08/2019 at [facility]. Treated by Heidi MUKHERJEE. Recs: Continue IV vancomycin, target trough between 10 to 20 mcg/mL along with synergistic Clindamycin high dose continue limb elevation if blood cultures negative at 48 hours, can discharge tomorrow on PO Linezolid 600 mg BID x 7 days (will need SW assistance, patient does not have any insurance). Consult ordered. Esteal Rutherford MD, FACP [facility] ([facility]) C: [phone] O: [phone] F: [phone] Subjective Date of service: 07/30/19 Interval history: No fever. DVT scan negative. Pain and swelling improving. Objective - Exam Narrative Exam: Physical Exam: Constitutional: Alert, cooperative. No acute distress Head, Ears, Nose: Normocephalic, atraumatic. External ears, nose normal Eyes: Conjunctivae/corneas clear. No icterus. No ptosis. Neck: Supple, no meningeal signs Cardiovascular: S1, S2 normal. Respiratory: Good air entry, clear to auscultation bilaterally GI: Soft, non-tender; bowel sounds normal. No peritoneal signs Musculoskeletal: Right lower extremity with improving swelling, redness and tenderness. No open area or purulence or wound Skin: No rash or abscess Hem/Lymphatic: No palpable cervical or supraclavicular nodes. No lymphangitis Psych: Mood ok. Affect normal Neurological: Awake, alert, oriented. No gross abnormality - Constitutional Vitals: Vital Signs Temp Pulse Resp BP Pulse Ox 97.5 F L 78 18 137/76 97 07/30/19 08:14 07/30/19 08:14 07/30/19 08:27 07/30/19 08:14 07/30/19 08:27 Temperature -Last 24 Hours Temperature 97.5 F Temperature 97.7 F Temperature 99.4 F Temperature 99.7 F Temperature 99.7 F Temperature 99.7 F - Labs CBC & Chem 7: 07/30/19 03:42 07/30/19 03:42 Labs: Abnormal lab results 07/30/19 07/30/19 Range/Units 03:42 03:42 [place] % (Auto) 12.5 H (0.0-7.3) % [place] # 1.0 H (0.0-0.8) K/mm3 Potassium 3.3 L (3.6-5.0) mmol/L Chloride 107.2 H (98-107) mmol/L Calcium 8.1 L (8.4-10.2) mg/dL
[2019-07-31] MEDS: VANCOMYCIN 2,000 MG in SODIUM CHLORIDE 0.9% 500 ML 500 ML IV SCH ×3 (03:57→23:18)
--- NOTE | 2019-07-31 10:42 | Progress Note ---
Assessment and Plan Assessment and plan: Patient is a 38 yo man with a history of bilateral leg cellulitis with MRSA who presents with bilateral leg pains. Sepsis right leg cellulitis: treat with IV Vancomycin with close monitoring Obesity, bmi 48.2: addiction counselor on weight reduction History of MRSA and group A streptococcus bacteremia in March 2019 treated with 4 weeks of IV daptomycin that ended on 04/08/2019 at [facility]. Treated by [place] ID: contact isolation 07/30/19: on IV vancomycin, WBC improved from 28.5 to 7.9, continue to follow cultures. 07/30/29: 1/2 blood culture set positive, await final results, notified ID History Interval history: Patient was seen and examined. Follow-up on current diagnosis RLE cellulitis. Overnight uneventful as no events directly reported to me. Patient denies any chest pain, shortness breath, nausea/vomiting or severe headaches. Imaging, nursing note, chart, labs and old chart reviewed. Discussed with patient. Hospitalist Physical - Physical exam Narrative exam: Gen: WDWN, NAD, Awake, Alert, Orientated HEENT: NCAT, EOMI, PERRL, OP Clear Neck: supple, no adenopathy, no thyromegaly, no JVD CVS/Heart: RRR, normal S1S2, pulses present bilaterally Chest/Lungs: CTA B, Symmetrical chest expansion, good air entry bilaterally GI/Abdomen: soft, NTND, good bowel sounds, no guarding or rebound /Bladder: no suprapubic tenderness, no CVA or paraspinal tenderness Extermity/Skin: bilateral lower leg with venous stasis changes, much better, right lower leg circumferential redness from ankle to mid calf with erythema, tenderness MSK: FROM x 4 Neuro: CN 2-12 grossly intact, no new focal deficits Psych: calm - Constitutional Vitals: Temp Pulse Resp BP Pulse Ox 98.5 F 72 20 121/78 95 07/31/19 08:41 07/31/19 08:41 07/31/19 08:41 07/31/19 08:41 07/31/19 08:41 Results - Labs CBC & Chem 7: 07/30/19 03:42 07/30/19 03:42 Labs: Laboratory Last Values WBC 7.9 K/mm3 (4.5-11.0) 07/30/19 03:42 RBC 4.23 M/mm3 (3.65-5.03) 07/30/19 03:42 Hgb 12.8 gm/dl (11.8-15.2) 07/30/19 03:42 Hct 37.9 % (35.5-45.6) 07/30/19 03:42 MCV 89 fl (84-94) 07/30/19 03:42 MCH 30 pg (28-32) 07/30/19 03:42 MCHC 34 % (32-34) 07/30/19 03:42 RDW 14.7 % (13.2-15.2) 07/30/19 03:42 Plt Count 206 K/mm3 (140-440) 07/30/19 03:42 Lymph % (Auto) 22.1 % (13.4-35.0) 07/30/19 03:42 [place] % (Auto) 12.5 % (0.0-7.3) H 07/30/19 03:42 Eos % (Auto) 1.7 % (0.0-4.3) 07/30/19 03:42 Baso % (Auto) 0.8 % (0.0-1.8) 07/30/19 03:42 Lymph # 1.8 K/mm3 (1.2-5.4) 07/30/19 03:42 [place] # 1.0 K/mm3 (0.0-0.8) H 07/30/19 03:42 Eos # 0.1 K/mm3 (0.0-0.4) 07/30/19 03:42 Baso # 0.1 K/mm3 (0.0-0.1) 07/30/19 03:42 Add Manual Diff Complete 07/28/19 23:25 Total Counted 100 07/28/19 23:25 Seg Neutrophils % 62.9 % (40.0-70.0) 07/30/19 03:42 Seg Neuts % (Manual) 84.0 % (40.0-70.0) H 07/28/19 23:25 Band Neutrophils % 6.0 % 07/28/19 23:25 Lymphocytes % (Manual) 3.0 % (13.4-35.0) L 07/28/19 23:25 Reactive Lymphs % (Man) 0 % 07/28/19 23:25 Monocytes % (Manual) 6.0 % (0.0-7.3) 07/28/19 23:25 Eosinophils % (Manual) 0 % (0.0-4.3) 07/28/19 23:25 Basophils % (Manual) 1.0 % (0.0-1.8) 07/28/19 23:25 Metamyelocytes % 0 % 07/28/19 23:25 Myelocytes % 0 % 07/28/19 23:25 Promyelocytes % 0 % 07/28/19 23:25 Blast Cells % 0 % 07/28/19 23:25 Nucleated RBC % Not Reportable 07/28/19 23:25 Seg Neutrophils # 5.0 K/mm3 (1.8-7.7) 07/30/19 03:42 Seg Neutrophils # Man 23.9 K/mm3 (1.8-7.7) H 07/28/19 23:25 Band Neutrophils # 1.7 K/mm3 07/28/19 23:25 Lymphocytes # (Manual) 0.9 K/mm3 (1.2-5.4) L 07/28/19 23:25 Abs React Lymphs (Man) 0.0 K/mm3 07/28/19 23:25 Monocytes # (Manual) 1.7 K/mm3 (0.0-0.8) H 07/28/19 23:25 Eosinophils # (Manual) 0.0 K/mm3 (0.0-0.4) 07/28/19 23:25 Basophils # (Manual) 0.3 K/mm3 (0.0-0.1) H 07/28/19 23:25 Metamyelocytes # 0.0 K/mm3 07/28/19 23:25 Myelocytes # 0.0 K/mm3 07/28/19 23:25 Promyelocytes # 0.0 K/mm3 07/28/19 23:25 Blast Cells # 0.0 K/mm3 07/28/19 23:25 WBC Morphology Not Reportable 07/28/19 23:25 Hypersegmented Neuts Not Reportable 07/28/19 23:25 Hyposegmented Neuts Not Reportable 07/28/19 23:25 Hypogranular Neuts Not Reportable 07/28/19 23:25 Smudge Cells Not Reportable 07/28/19 23:25 Toxic Granulation Not Reportable 07/28/19 23:25 Toxic Vacuolation Not Reportable 07/28/19 23:25 Dohle Bodies Not Reportable 07/28/19 23:25 Pelger-Huet Anomaly Not Reportable 07/28/19 23:25 Marjan Rods Not Reportable 07/28/19 23:25 Platelet Estimate Consistent w auto 07/28/19 23:25 Clumped Platelets Not Reportable 07/28/19 23:25 Plt Clumps, EDTA Not Reportable 07/28/19 23:25 Large Platelets Not Reportable 07/28/19 23:25 Giant Platelets Not Reportable 07/28/19 23:25 Platelet Satelliting Not Reportable 07/28/19 23:25 Plt Morphology Comment Not Reportable 07/28/19 23:25 RBC Morphology Not Reportable 07/28/19 23:25 Dimorphic RBCs Not Reportable 07/28/19 23:25 Polychromasia Not Reportable 07/28/19 23:25 Hypochromasia Not Reportable 07/28/19 23:25 Poikilocytosis Not Reportable 07/28/19 23:25 Anisocytosis Not Reportable 07/28/19 23:25 Microcytosis Not Reportable 07/28/19 23:25 Macrocytosis Not Reportable 07/28/19 23:25 Spherocytes Not Reportable 07/28/19 23:25 Pappenheimer Bodies Not Reportable 07/28/19 23:25 Sickle Cells Not Reportable 07/28/19 23:25 Target Cells Not Reportable 07/28/19 23:25 Tear Drop Cells Not Reportable 07/28/19 23:25 Ovalocytes Not Reportable 07/28/19 23:25 Helmet Cells Not Reportable 07/28/19 23:25 [place] Bodies Not Reportable 07/28/19 23:25 [place] Rings Not Reportable 07/28/19 23:25 Li Cells Rare 07/28/19 23:25 Bite Cells Not Reportable 07/28/19 23:25 Crenated Cell Not Reportable 07/28/19 23:25 Elliptocytes Rare 07/28/19 23:25 Acanthocytes (Spur) Not Reportable 07/28/19 23:25 Rouleaux Not Reportable 07/28/19 23:25 Hemoglobin C Crystals Not Reportable 07/28/19 23:25 Schistocytes Not Reportable 07/28/19 23:25 Malaria parasites Not Reportable 07/28/19 23:25 Vince Bodies Not Reportable 07/28/19 23:25 Hem Pathologist Commnt No 07/28/19 23:25 Sodium 142 mmol/L (137-145) 07/30/19 03:42 Potassium 3.3 mmol/L (3.6-5.0) L 07/30/19 03:42 Chloride 107.2 mmol/L (98-107) H 07/30/19 03:42 Carbon Dioxide 25 mmol/L (22-30) 07/30/19 03:42 Anion Gap 13 mmol/L 07/30/19 03:42 BUN 10 mg/dL (9-20) 07/30/19 03:42 Creatinine 0.8 mg/dL (0.8-1.5) 07/30/19 03:42 Estimated GFR > 60 ml/min 07/30/19 03:42 BUN/Creatinine Ratio 13 % 07/30/19 03:42 Glucose 97 mg/dL (75-100) 07/30/19 03:42 Lactic Acid 1.90 mmol/L (0.7-2.0) 07/29/19 05:51 Calcium 8.1 mg/dL (8.4-10.2) L 07/30/19 03:42 Total Bilirubin 0.80 mg/dL (0.1-1.2) 07/28/19 23:25 AST 18 units/L (5-40) 07/28/19 23:25 ALT 17 units/L (7-56) 07/28/19 23:25 Alkaline Phosphatase 70 units/L (35-129) 07/28/19 23:25 Total Protein 7.0 g/dL (6.3-8.2) 07/28/19 23:25 Albumin 4.4 g/dL (3.9-5) 07/28/19 23:25 Albumin/Globulin Ratio 1.7 % 07/28/19 23:25 Lipase 20 units/L (13-60) 07/28/19 23:25 Urine Color Yellow (Yellow) 07/28/19 Unknown Urine Turbidity Clear (Clear) 07/28/19 Unknown Urine pH 7.0 (5.0-7.0) 07/28/19 Unknown Ur Specific [place] 1.008 (1.003-1.030) 07/28/19 Unknown Urine Protein <15 mg/dl mg/dL (Negative) 07/28/19 Unknown Urine Glucose (UA) Neg mg/dL (Negative) 07/28/19 Unknown Urine Ketones Neg mg/dL (Negative) 07/28/19 Unknown Urine Blood Neg (Negative) 07/28/19 Unknown Urine Nitrite Neg (Negative) 07/28/19 Unknown Urine Bilirubin Neg (Negative) 07/28/19 Unknown Urine Urobilinogen < 2.0 mg/dL (<2.0) 07/28/19 Unknown Ur Leukocyte Esterase Neg (Negative) 07/28/19 Unknown Urine WBC (Auto) 2.0 /HPF (0.0-6.0) 07/28/19 Unknown Urine RBC (Auto) 2.0 /HPF (0.0-6.0) 07/28/19 Unknown U Epithel Cells (Auto) 1.0 /HPF (0-13.0) 07/28/19 Unknown Urine Bacteria (Auto) 4+ /HPF (Negative) 07/28/19 Unknown Urine Mucus 2+ /HPF 07/28/19 Unknown Vancomycin Trough 18.9 ug/mL (5.0-20.0) 07/30/19 11:54 Microbiology: Microbiology 07/29/19 01:46 Peripheral/Venous Blood Culture - Preliminary 07/29/19 01:46 Peripheral/Venous Blood Culture - Preliminary NO GROWTH AFTER 48 HOURS Panda/IV: IV Catheter Type [Right Peripheral IV Antecubital] IV Catheter Type [Left INT / Saline Lock Antecubital] Active Medications - Current Medications Current Medications: Generic Name Dose Route Start Last Admin Trade Name Freq PRN Reason Stop Dose Admin Acetaminophen 650 mg 07/29/19 05:52 07/29/19 21:52 Tylenol PO 650 mg Q4H PRN Administration Pain MILD(1-3)/Fever >100.5/MARTINEZ Enoxaparin Sodium 40 mg 07/29/19 10:00 07/30/19 09:45 Enoxaparin SUB-Q 40 mg QAM ZAK Administration Sodium Chloride 1,000 mls @ 75 mls/hr 07/29/19 06:00 07/29/19 22:02 Nacl 0.45% 1000 Ml IV 75 mls/hr DIRECT ZAK Administration Vancomycin HCl 2,000 mg/ 540 mls @ 250 mls/hr 07/29/19 12:00 07/31/19 03:57 Sodium Chloride IV 250 mls/hr Q8H ZAK Administration Clindamycin HCl 900 mg in 50 mls @ 100 mls/hr 07/29/19 15:00 07/31/19 06:22 Cleocin 900 Mg/50 Ml IV 100 mls/hr Q8HR ZAK Administration Protocol Ondansetron HCl 4 mg 07/29/19 05:52 07/29/19 21:53 Zofran IV 4 mg Q8H PRN Administration Nausea And Vomiting Oxycodone/Acetaminophen 1 tab 07/29/19 05:52 07/29/19 21:53 Percocet 5/325 PO 1 tab Q6H PRN Administration Pain, Moderate (4-6) Sodium Chloride 10 ml 07/29/19 10:00 07/30/19 22:15 Sodium Chloride Flush Syringe 10 Ml IV 10 ml BID ZAK Administration Sodium Chloride 10 ml 07/29/19 05:52 Sodium Chloride Flush Syringe 10 Ml IV PRN PRN LINE FLUSH
[2019-07-31] MEDS: ENOXAPARIN 40 MG/0.4 ML INJ SUB-Q SCH (12:48)
--- NOTE | 2019-07-31 14:25 | Progress Note ---
Assessment and Plan Cultures: 07/29/2019 blood culture: 2/4 with GPC A/P: 38-year-old male with obesity, history of MRSA and group A streptococcus bacteremia in March 2019 treated with 4 weeks of IV daptomycin that ended on 04/08/2019 at [facility]: #Sepsis, right lower extremity cellulitis: US negative for DVT. #GPC bacteremia: likely from above #Obesity #History of MRSA and group A streptococcus bacteremia in March 2019 treated with 4 weeks of IV daptomycin that ended on 04/08/2019 at [facility]. Treated by Heidi ID. Recs: Continue IV vancomycin, target trough between 10 to 20 mcg/mL Stopped synergistic Clindamycin, completed 3 days repeat blood cultures and TTE Estela Rutherford MD, FACP [facility] C: [phone] O: [phone] F: [phone] Subjective Date of service: 07/31/19 Interval history: No fever. Pain and swelling improving. Objective - Exam Narrative Exam: Physical Exam: Constitutional: Alert, cooperative. No acute distress Head, Ears, Nose: Normocephalic, atraumatic. External ears, nose normal Eyes: Conjunctivae/corneas clear. No icterus. No ptosis. Neck: Supple, no meningeal signs Cardiovascular: S1, S2 normal. Respiratory: Good air entry, clear to auscultation bilaterally GI: Soft, non-tender; bowel sounds normal. No peritoneal signs Musculoskeletal: Right lower extremity with improving swelling, redness and tenderness. No open area or purulence or wound Skin: No rash or abscess Hem/Lymphatic: No palpable cervical or supraclavicular nodes. No lymphangitis Psych: Mood ok. Affect normal Neurological: Awake, alert, oriented. No gross abnormality - Constitutional Vitals: Vital Signs Temp Pulse Resp BP Pulse Ox 98.5 F 78 18 136/85 94 07/31/19 11:11 07/31/19 11:11 07/31/19 11:11 07/31/19 11:11 07/31/19 11:11 Temperature -Last 24 Hours Temperature 98.5 F Temperature 98.5 F Temperature 98.3 F Temperature 98.6 F Temperature 98.7 F Temperature 98.4 F - Labs CBC & Chem 7: 07/30/19 03:42 07/30/19 03:42
[2019-07-31] MEDS: oxyCODONE /ACETAMINOPHEN 5-325MG TAB PO PRN (23:18)
[2019-08-01] MEDS: VANCOMYCIN 2,000 MG in SODIUM CHLORIDE 0.9% 500 ML 500 ML IV SCH ×2 (06:04→13:00)
[2019-08-01] MEDS: ENOXAPARIN 40 MG/0.4 ML INJ SUB-Q SCH ×2 (08:31→10:00)
[2019-08-01 12:49] VITALS: BP 138/90
--- NOTE | 2019-08-01 16:47 | Discharge Summary ---
Providers - Providers Date of Admission: 07/29/19 04:16 Date of discharge: 08/01/19 Attending physician: ITZ STEEL 07/29/19 05:52 Consult to Physician [CONS] Routine Comment: Consulting Provider: BREANNA COLON Physician Instructions: Reason For Exam: [email or web address] 07/30/19 12:32 Consult to Case Management [CONS] Routine Services Needed at Discharge: Other Notified:: director of casework Comment:: Patient assistance for Linezolid Additional Physician Instructions: Please help with PO Linezolid 600 mg BID x 7 days. If arranged for, patient can be discharged. Has no insurance. Thanks. Primary care physician: PARLOR CHAPERONE Hospitalization Condition: Stable Hospital course: Patient is a 38 yo man with a history of bilateral leg cellulitis with MRSA who presents with bilateral leg pains. Hospital Coarse: 07/30/19: on IV vancomycin, WBC improved from 28.5 to 7.9, continue to follow cultures. 07/31/19: 1/2 blood culture set positive, await final results, notified ID 08/01/19: home on Linezolid 600mg po bid x 7days, d/w ID, Dr. 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 Treated by [place] ID: contact isolation Blood cultures contamination Disposition: -01 TO HOME OR SELFCARE Time spent for discharge: 33 minutes Core Measure Documentation - Palliative Care Palliative Care/ Comfort Measures: Not Applicable - Core Measures Any of the following diagnoses?: none - VTE Discharge Requirements Deep Vein Thrombosis/Pulmonary Embolism Present on Admission: No Has pt received <5 days of overlap therapy or INR<2.0: No Anticoagulant overlap therapy prescribed at discharge: No Contraindication No Overlap Therapy order at DC: Not Indicated Exam - Physical Exam Narrative exam: Gen: WDWN, NAD, Awake, Alert, Orientated x 3, BMI 49 HEENT: NCAT, EOMI, PERRL, OP Clear Neck: supple, no adenopathy, no thyromegaly, no JVD CVS/Heart: RRR, normal S1S2, pulses present bilaterally Chest/Lungs: CTA B, Symmetrical chest expansion, good air entry bilaterally GI/Abdomen: soft, NTND, good bowel sounds, no guarding or rebound /Bladder: no suprapubic tenderness, no CVA or paraspinal tenderness Extermity/Skin: much improved, bilateral lower leg with venous stasis changes, much better, right lower leg circumferential redness from ankle to mid calf with erythema, tenderness MSK: FROM x 4 Neuro: CN 2-12 grossly intact, no new focal deficits Psych: calm - Constitutional Vitals: Temp Pulse Resp BP Pulse Ox 98.4 F 85 18 138/90 96 08/01/19 12:41 08/01/19 12:41 08/01/19 12:41 08/01/19 12:41 08/01/19 12:41 Plan Activity: other (no strenous activity unless cleared by PCP) Diet: regular Follow up with: PRIMARY CAREMD [Primary Care Provider] - 3-5 Days BREANNA COLON MD [Staff Physician] - 7 Days Prescriptions: Melatonin [Melatonin 10MG TAB] 10 mg PO QHS PRN #10 tablet PRN Reason: Sleep Linezolid [Zyvox] 600 mg PO BID #14 tablet
--- NOTE | 2019-08-01 16:56 | Progress Note ---
Assessment and Plan Cultures: 07/29/2019 blood culture: 2/4 with CONS A/P: 38-year-old male with obesity, history of MRSA and group A streptococcus bacteremia in March 2019 treated with 4 weeks of IV daptomycin that ended on 04/08/2019 at [facility]: #Sepsis, right lower extremity cellulitis: US negative for DVT. #CONS bacteremia: only 1 set positive, both bottles, likely contaminant. TTE unremarkable for vegetations. #Obesity #History of MRSA and group A streptococcus bacteremia in March 2019 treated with 4 weeks of IV daptomycin that ended on 04/08/2019 at [facility]. Treated by [place] ID. Recs: OK for discharge on PO Linezolid 600 mg BID x 7 days. Appreciate CM assistance d/w Dr. Bang. Estela Rutherford MD, [facility] ([facility]) C: [phone] O: [phone] F: [phone] Subjective Date of service: 08/01/19 Interval history: No fever. Pain and swelling much improved. Has no complaints. Hoping to go home. Objective - Exam Narrative Exam: Physical Exam: Constitutional: Alert, cooperative. No acute distress Head, Ears, Nose: Normocephalic, atraumatic. External ears, nose normal Eyes: Conjunctivae/corneas clear. No icterus. No ptosis. Neck: Supple, no meningeal signs Cardiovascular: S1, S2 normal. Respiratory: Good air entry, clear to auscultation bilaterally GI: Soft, non-tender; bowel sounds normal. No peritoneal signs Musculoskeletal: Right lower extremity with improved redness and tenderness. No open area or purulence or wound Skin: No rash or abscess Hem/Lymphatic: No palpable cervical or supraclavicular nodes. No lymphangitis Psych: Mood ok. Affect normal Neurological: Awake, alert, oriented. No gross abnormality - Constitutional Vitals: Vital Signs Temp Pulse Resp BP Pulse Ox 98.4 F 85 18 138/90 96 08/01/19 12:41 08/01/19 12:41 08/01/19 12:41 08/01/19 12:41 08/01/19 12:41 Temperature -Last 24 Hours Temperature 98.4 F Temperature 97.8 F Temperature 98.2 F Temperature 98.3 F Temperature 98.9 F - Labs CBC & Chem 7: 07/30/19 03:42 07/30/19 03:42
== END 2019-08-01 17:48 | disposition home or self-care (01) | DRG 872 ==
LOC: ED 21:50 → 4A 07-29 04:16
PROVIDERS: ADMIT Internal Medicine; ATTEND Internal Medicine
DX: A41.9 Sepsis, unspecified organism (principal); L03.116 Cellulitis of left lower limb; L03.115 Cellulitis of right lower limb; Z68.42 Body mass index [BMI] 45.0-49.9, adult; E66.01 Morbid (severe) obesity due to excess calories; Z86.14 Personal history of Methicillin resistant Staphylococcus aureus infection; Z82.49 Family history of ischemic heart disease and other diseases of the circulatory system; Z71.3 Dietary counseling and surveillance
CPT/HCPCS: 36415; 71045; 80048; 80053; 80202; 81001; 82140; 83690; 85007; 85025; 87040; 93005; 93306; 93970; G0378; J1650; J2405; J3370; J7030; J7040